=== PATIENT | male | born 1970 ===

== ENCOUNTER 2017-09-08 05:59 | Day surgery (SDC) | payer BC, OTHER ==
--- NOTE | 2017-08-18 15:19 | HP ---
CC: Dr. Nick Renee; Dr. Cano ADMISSION HISTORY AND PHYSICAL: DATE OF ADMISSION: 09/08/17 ATTENDING SURGEON: Javid Morales MD * (JASON Oliver, dictating). CHIEF COMPLAINT: Left groin pain. HISTORY OF PRESENT ILLNESS: This is a 46-year-old hypertensive male who underwent open left inguinal hernia repair with mesh for a direct inguinal hernia in 2010. The patient states that the hernia was a work related injury that occurred while the patient was lifting a ladder. Preoperatively, he was experiencing pain in the left groin, which radiated to the left testicle. There was also an associated bulge. Immediately, following surgery, the patient states that the area felt like it was on fire, but also had other symptoms including numbness and shooting pain, again in the direction of the testicle. The patient would have increased symptoms after sexual relations, but also after simply bending or sitting for too long. He has been through multiple attempts at conservative management of this chronic pain including nerve injections, Neurontin, Lyrica, topical Capsaicin and nerve stimulators ( initial nerve stimulator was subsequently removed and then another stimulator was replaced, which is still in place, though not functional). The patient denies any specific GI or symptoms. He states occasionally the pain actually radiates up into the left upper quadrant of the abdomen. The patient was seen in the office initially by Dr. Morales on 05/30/17 and then again on 02/19. Dr. Morales has outlined the indications for surgery, the risks, benefits and alternatives including the option of no surgery and the potential outcome of no improvement or worsening pain. The patient understands all of these issues and elected to proceed as scheduled with left groin exploration with removal of mesh and possible enterectomy. PAST MEDICAL HISTORY: Hypertension, hyperlipidemia, obesity, chronic pain as noted above. PAST SURGICAL HISTORY: Left inguinal herniorrhaphy as noted above. Nerve stimulator placement, removal and replacement. Bilateral ankle surgery, bilateral rotator cuff surgery, vasectomy. No other surgical or anesthesia complications noted. CURRENT MEDICATIONS: 1. Aspirin 81 mg once daily (patient is directed to hold for 7 to 10 days preoperatively). 2. Atorvastatin 80 mg once daily. 3. Lisinopril-hydrochlorothiazide 20-12.5 b.i.d. 4. Norvasc 10 mg daily. 5. Metoprolol 25 mg b.i.d. 6. Hydromorphone 4 mg 4 times daily. 7. Ibuprofen 200 mg 3 to 4 tablets t.i.d. p.r.n. or Naproxen 200 mg 2 tablets t.i.d. p.r.n. DRUG ALLERGIES: LYRICA (dizziness and somnolence). FAMILY HISTORY: Father did have a history of PE following cardiac surgery. The patient also has a paternal uncle who also had suffered a PE. There is no other family history of thromboembolic disease, anesthesia problems or bleeding disorders. SOCIAL HISTORY: The patient is and lives with his significant other. He is under disability. He denies use of tobacco. He drinks approximately 12 beers per week. He denies use of other recreational drugs. REVIEW OF SYSTEMS: General: No recent constitutional symptoms or acute illnesses, other than described in the HPI. Cardiovascular: History for hypertension. No history of chest pain, palpitations, NE or angina. Respiratory: No history of asthma, chronic cough or shortness of breath. GI: No problems reported. : No problems reported. Musculoskeletal: As above. No additions. Neurological: No additional problems reported. Endocrine: No diabetes or thyroid dysfunction. PHYSICAL EXAMINATION GENERAL: Well-nourished, obese male in no acute distress. VITAL SIGNS: Height 5 feet 10 inches, weight 250 pounds by history. Blood pressure 124/88, pulse 66, respirations 18, temperature 98.4. HEENT: Pupils are equal, round, reactive. EOMs intact. No conjunctival pallor. Oropharynx: Teeth in good repair. No intraoral lesions. NECK: No lymphadenopathy, thyromegaly or masses. LUNGS: Clear to auscultation. No rales or wheezes. HEART: Regular rate and rhythm. No murmur noted. ABDOMEN: Soft, nontender to palpation. No palpable masses or organomegaly. Per Dr. Morales's exam, there is surgical evidence of a prior inguinal hernia repair. The testes are normally descended, the left one slightly larger and tender. The right side is normal. The left side has tenderness extending along the spermatic cord all the way to the internal ring. There is no pain or tenderness in the upper thigh and no paresthesias in that area. There is no evidence of recurrent hernia or infection. BACK: There is a scar in the lower back from nerve stimulator placement. That area is tender in the inferior aspect. The remainder of the spine is nontender and grossly normal. There is no significant CVA tenderness. EXTREMITIES: Without edema. NEUROLOGICAL: Grossly intact. Specific exam not performed at this time. SKIN: Warm and dry. No suspicious rashes or lesions noted. He does have some scaly rash around the upper face and nasal and forehead areas that he states is related to seborrhea or psoriasis. He uses topical lotions p.r.n. IMPRESSION: Chronic pain, post herniorrhaphy left groin. PLAN: Left groin exploration, removal of mesh, possible enterectomy. JASON OLIVER [id number]/[facility] #: [id number] MTDD
--- NOTE | 2017-09-01 16:50 | HP ---
HISTORY AND PHYSICAL: ADDENDUM: The patient understands all these issues and elects to proceed as scheduled with left groin exploration with removal of mesh and possible neurectomy. PLAN: Left groin exploration, removal of mesh, possible neurectomy. JASON BERNAL [id number]/[facility] #: [id number] [facility]ENTERDarcy
[~2017-09-08 05:59] MED LIST: Buffered Lidocaine 0.9% SYRIN* 5 ML/SYR SYRINGE INTRADERM ONE
[2017-09-08] MEDS ORDERED: Metoclopramide TAB* 10 MG PO ONE (06:00)
[2017-09-08] MEDS ORDERED: Famotidine IV* 10 MG/ML 2 ML (20 mg) IV ONE (06:00)
[2017-09-08] MEDS ORDERED: Famotidine IV* 10 MG/ML 2 ML (20 mg) ONE (06:15)
[2017-09-08] MEDS ORDERED: Metoclopramide TAB* 10 MG ONE (06:16)
[2017-09-08] MEDS ORDERED: ceFAZolin 2 GM PREMIX (*) 2 GM/50 ML BAG IVPB ONE (06:16)
[2017-09-08] MEDS ORDERED: Bupivacaine 0.5% SDV PF* 10-30ML VIAL ONE (07:12)
[2017-09-08] MEDS ORDERED: Lidocaine 1% MPF wEPI 200,000* 30 ML SDV ONE (07:12)
[2017-09-08] MEDS ORDERED: Midazolam* 1 MG/ML 10 ML VIAL (10 MG) ONE (07:25)
[2017-09-08] MEDS ORDERED: fentaNYL* 50 MCG/ML 2 ML VIAL (100 MCG VIAL) ONE ×2 (07:25→09:37)
[2017-09-08] MEDS ORDERED: KETAMINE HCL* 50 MG/ML 10 ML VIAL ONE (07:25)
[2017-09-08] MEDS ORDERED: Lidocaine 2% PF * 5 ML VIAL ONE (07:25)
[2017-09-08] MEDS ORDERED: Ondansetron INJ* 2 MG/ML VIAL ONE (07:25)
[2017-09-08] MEDS ORDERED: Propofol* 10 MG/ML 20 ML BTL IV PUSH ONE (07:25)
[2017-09-08] MEDS ORDERED: Dexamethasone IV* 4 MG/ML 1 ML (4 MG) ONE (07:25)
[2017-09-08] MEDS ORDERED: Ketorolac INJ* 30 MG/ML 1 ML VIAL ONE (07:25)
[2017-09-08] MEDS ORDERED: Naloxone* 0.4 MG/ML 1 ML VIAL IV PRN (08:23)
[2017-09-08] MEDS ORDERED: Ondansetron ODT TAB* 4 MG PO PRN (08:23)
[2017-09-08] MEDS ORDERED: HYDROmorphone INJ* 1 MG/ML CARPUJECT SYRINGE ONE (08:30)
[2017-09-08] MEDS ORDERED: oxyCODONE/Acetamin 5/325 MG* TAB PO PRN (09:31)
[2017-09-08] MEDS ORDERED: oxyCODONE/Acetamin 5/325 MG* TAB ONE (09:37)
[2017-09-08] MEDS: fentaNYL* 50 MCG/ML 2 ML VIAL (100 MCG VIAL) IV PRN ×2 (09:41→10:16)
[2017-09-08] MEDS ORDERED: Labetalol IV* 5 MG/ML 20 ML VIAL ONE (10:14)
[2017-09-08 11:22] VITALS: BP 141/91
--- NOTE | 2017-09-08 22:10 | OP ---
CC: Dr. Renee; Dr. Cano * DATE OF OPERATION: 09/08/17 - [facility] DATE OF : 70 SURGEON: Javid Morales MD CASINO INVESTIGATOR: JASON Haji ANESTHESIOLOGIST: Dr. Jose Lowery. ANESTHESIA: General anesthetic, local infiltration. PREOPERATIVE DIAGNOSIS: Chronic left groin pain. POSTOPERATIVE DIAGNOSIS: Chronic left groin pain. OPERATIVE PROCEDURE: Exploration of left groin with explantation of previous mesh, repair of hernia and neurectomy. DESCRIPTION OF PROCEDURE: The patient was supine on the operative table. After adequate general anesthetic, compression stockings, Melany Hugger warmer and intravenous antibiotics, the left groin was prepped with antiseptic, draped in sterile a fashion. Previous incision was reentered after local anesthesia. Dissection was carried down to Veronica's which was opened and then carried down to the external oblique. External oblique was entered in the usual fashion. The scar tissue was encountered and laterally was pretty free as they progressed medially. I started to have adhesions to the mesh. The mesh was especially adherent in the region of the inguinal ligament. Ultimately, the external oblique was freed up from the mesh. There was a little bit of tearing medially, but it really was not in pretty good shape. The mesh was then identified lateral to the cord structures. The current structures were also encircled that tubercle and tented upward and the mesh was from the musculature lateral to the cord, then it was divided and brought back around the cord medially and dissected all the way down to the tubercle whereupon it was removed. The mesh was encased in the scar tissue as expected, but otherwise unremarkable. The hernia was repaired by bringing the transverse abdominis down to inguinal ligament with [id number] sutures of 0- Vicryl and the ilioinguinal nerve was identified lateral to the cord, lateral to the internal ring. It was followed medially and it went into a mass of scar tissue and I could not free this up to where I felt we had a free and clear nerve, so the nerve was divided at its exit from the musculature and ligated with 3-0 Vicryl. Local anesthetic was administered in the musculature. External oblique was closed over top with 2-0 Vicryl. Veronica's was closed with Vicryl and skin with 4-0 Vicryl followed by Steri-Strips. He was then awakened and brought to the recovery in good condition. There were no complications, no drains. Pathologic specimen is mesh. Sponge and instrument counts were correct. Estimated blood loss 20 mL. [id number]/[facility] #: [id number] [facility]
== END 2017-09-08 11:22 | disposition home or self-care (01) ==
LOC: OR 05:59
PROVIDERS: ATTEND Surgery
DX: G89.28 Other chronic postprocedural pain (principal); I10 Essential (primary) hypertension; E78.5 Hyperlipidemia, unspecified; E66.9 Obesity, unspecified
CPT/HCPCS: 88300; A9270-GY; J0690; J1100; J1170; J1885; J2001; J2250; J2405; J2704; J3010

== ENCOUNTER 2021-06-07 06:44 | Inpatient (IN) ==
[2021-06-07 08:36] LABS: Rapid COVID-19 Molecular Detected (Undetected)
[2021-06-07 08:43] LABS: Influenza A Molecular Negative (Negative); Influenza B Molecular Negative (Negative)
[2021-06-07] MEDS ORDERED: Dexamethasone IV 4 MG/ML VIAL 1 ml VIAL IV SLOW PU ONE (08:43)
[2021-06-07 08:55] LABS: ABS Lymphocytes 0.7 10^3/ul (1.0-4.8); ABS Monocytes 0.3 10^3/ul (0-0.8); ABS Neutrophils 5.2 10^3/ul (1.5-7.7); Hematocrit 43 % (42-52); Hemoglobin 14.7 g/dL (14.0-18.0); Lymphocyte % 11.2 %; Mean Corpuscular HGB Conc 34 g/dL (31-36); Mean Corpuscular Hemoglobin 29 pg (27-31); Mean Corpuscular Volume 86 fL (80-94); Mean Platelet Volume 7.8 fL (7.4-10.4); Platelet Count 237 10^3/uL (150-450); Red Blood Count 4.98 10^6 /uL (4.18-5.48); Red Cell Distribution Width 13 % (10-15); White Blood Count 6.2 10^3/uL (3.5-10.8)
[2021-06-07 09:03] LABS: Activated Partial Thrombo Time 30.9 seconds (26.0-38.0); INR 1.13 (0.86-1.15)
[2021-06-07 09:13] LABS: ALT 41 U/L (7-52); Alkaline Phosphatase 72 U/L (35-149); Blood Urea Nitrogen 20 mg/dL (6-24); CO2 Carbon Dioxide 27 mmol/L (22-32); Calcium 8.7 mg/dL (8.6-10.3); Chloride 99 mmol/L (101-111); EGFR African American 149.4 (>60); EGFR Non-African American 123.4 (>60); Globulin 4.1 g/dL (2-4); Glucose 132 mg/dL (70-100); Sodium 134 mmol/L (135-145); Total Protein 8.1 g/dL (6.4-8.9)
[2021-06-07 09:15] LABS: Troponin I 0.01 ng/mL (<0.03)
[2021-06-07 09:47] LABS: Anion Gap 8 mmol/L (2-11)
[2021-06-07 10:04] LABS: Ferritin 643.9 ng/mL (24-336)
[2021-06-07 10:09] LABS: Venous Bicarbonate HCO3 28.2 mmol/L (24-28)
[2021-06-07] MEDS ORDERED: Iohexol 350 (CONTRAST) 500 ML MDV IV ONE (10:10)
[2021-06-07] MEDS ORDERED: Remdesivir 100 mg Vial 200 MG in NS 0.9% 250 ml 210 ML IV ONE (12:13)
[2021-06-07] MEDS: Enoxaparin 40 MG/0.4 ML SYR SUBCUT SCH (15:07)
[2021-06-07 21:48] LABS: Potassium Redraw 3.7 mmol/L (3.5-5.0)
[2021-06-07 21:53] LABS: Troponin I 0.01 ng/mL (<0.03)
[2021-06-08] MEDS: NS 0.9% 1000 ml BAG 1,000 ML IV SCH ×2 (00:28→12:35)
[2021-06-08 06:43] LABS: INR 1.05 (0.86-1.15)
[2021-06-08 06:45] LABS: ABS Lymphocytes 0.7 10^3/ul (1.0-4.8); ABS Monocytes 0.4 10^3/ul (0-0.8); Hematocrit 42 % (42-52); Hemoglobin 14.6 g/dL (14.0-18.0); Lymphocyte % 9.6 %; Mean Corpuscular HGB Conc 35 g/dL (31-36); Mean Corpuscular Hemoglobin 30 pg (27-31); Mean Corpuscular Volume 86 fL (80-94); Mean Platelet Volume 7.6 fL (7.4-10.4); Platelet Count 285 10^3/uL (150-450); Red Blood Count 4.86 10^6 /uL (4.18-5.48); Red Cell Distribution Width 13 % (10-15); White Blood Count 7.1 10^3/uL (3.5-10.8)
[2021-06-08 06:54] LABS: Albumin 3.8 g/dL (3.2-5.2); Albumin/Globulin Ratio 1.1 (1-3); Calcium 9.1 mg/dL (8.6-10.3); EGFR African American 123.8 (>60); EGFR Non-African American 102.3 (>60); Globulin 3.6 g/dL (2-4); Potassium 3.7 mmol/L (3.5-5.0); Total Bilirubin 0.7 mg/dL (0.2-1.0); Total Protein 7.4 g/dL (6.4-8.9)
[2021-06-08] MEDS: Aspirin EC 81 mg TAB.EC (enteric coated) PO SCH (09:16)
[2021-06-08] MEDS: Remdesivir 100 mg Vial 100 MG in NS 0.9% 250 ml 230 ML IV SCH (09:16)
[2021-06-08] MEDS: Enoxaparin 40 MG/0.4 ML SYR SUBCUT SCH (12:51)
[2021-06-08] MEDS: Pantoprazole VIAL 40 MG VIAL IV SCH (18:39)
[2021-06-09 06:18] LABS: INR 1.08 (0.86-1.15)
[2021-06-09 06:25] LABS: Albumin 3.5 g/dL (3.2-5.2); Albumin/Globulin Ratio 1.1 (1-3); Calcium 8.9 mg/dL (8.6-10.3); Globulin 3.2 g/dL (2-4); Potassium 3.9 mmol/L (3.5-5.0); Total Bilirubin 0.5 mg/dL (0.2-1.0); Total Protein 6.7 g/dL (6.4-8.9)
[2021-06-09] MEDS: Pantoprazole VIAL 40 MG VIAL IV SCH (08:59)
[2021-06-09] MEDS: Aspirin EC 81 mg TAB.EC (enteric coated) PO SCH (09:01)
[2021-06-09] MEDS: Remdesivir 100 mg Vial 100 MG in NS 0.9% 250 ml 230 ML IV SCH (09:29)
[2021-06-09] MEDS: Polyethylene Glycol 3350 17 GM PACKET PO SCH ×2 (11:13→12:16)
[2021-06-09] MEDS: Enoxaparin 40 MG/0.4 ML SYR SUBCUT SCH (13:27)
[2021-06-09] MEDS: Senna TAB 8.6 mg TAB PO SCH (19:38)
[2021-06-10 05:38] LABS: Hematocrit 39 % (42-52); Hemoglobin 13.4 g/dL (14.0-18.0); Mean Corpuscular HGB Conc 34 g/dL (31-36); Mean Corpuscular Hemoglobin 30 pg (27-31); Mean Corpuscular Volume 87 fL (80-94); Mean Platelet Volume 7.6 fL (7.4-10.4); Platelet Count 377 10^3/uL (150-450); Red Blood Count 4.54 10^6 /uL (4.18-5.48); Red Cell Distribution Width 13 % (10-15); White Blood Count 8.5 10^3/uL (3.5-10.8)
[2021-06-10 05:52] LABS: Calcium 8.8 mg/dL (8.6-10.3)
[2021-06-10] MEDS: Aspirin EC 81 mg TAB.EC (enteric coated) PO SCH (08:51)
[2021-06-10] MEDS: Remdesivir 100 mg Vial 100 MG in NS 0.9% 250 ml 230 ML IV SCH (08:52)
[2021-06-10] MEDS: Enoxaparin 40 MG/0.4 ML SYR SUBCUT SCH (11:47)
[2021-06-10] MEDS: Senna TAB 8.6 mg TAB PO SCH (20:30)
[2021-06-11 06:55] LABS: Hematocrit 42 % (42-52); Hemoglobin 14.4 g/dL (14.0-18.0); Mean Corpuscular HGB Conc 35 g/dL (31-36); Mean Corpuscular Hemoglobin 30 pg (27-31); Mean Corpuscular Volume 86 fL (80-94); Mean Platelet Volume 7.9 fL (7.4-10.4); Platelet Count 439 10^3/uL (150-450); Red Blood Count 4.84 10^6 /uL (4.18-5.48); Red Cell Distribution Width 13 % (10-15); White Blood Count 11.6 10^3/uL (3.5-10.8)
[2021-06-11 07:13] LABS: Calcium 9.1 mg/dL (8.6-10.3); Potassium 4.1 mmol/L (3.5-5.0)
[2021-06-11] MEDS: Aspirin EC 81 mg TAB.EC (enteric coated) PO SCH (08:46)
[2021-06-11] MEDS: Remdesivir 100 mg Vial 100 MG in NS 0.9% 250 ml 230 ML IV SCH (08:46)
[2021-06-11 11:26] VITALS: BP 142/71
[2021-06-11] MEDS: Enoxaparin 40 MG/0.4 ML SYR SUBCUT SCH (12:54)
== END 2021-06-11 15:20 | disposition home or self-care (01) | DRG 177 ==
LOC: ED 06:44 → EDHOLD 12:09 → SUATTDRO 12:09 → MED 06-08 00:58
PROVIDERS: ADMIT Internal Medicine; ATTEND Hospitalist